=== PATIENT | male | born 1960 | race Caucasian/White ===

== ENCOUNTER → 2016-12-23 | Outpatient (CLI) | payer BC | LOC: RAD 17:40 | DX: R10.9 Unspecified abdominal pain (principal); R31.9 Hematuria, unspecified | CPT/HCPCS: 74000 ==

== ENCOUNTER → 2020-07-09 | Outpatient (CLI) | payer OTHER ==
[~2020-07-09] MED LIST: MOBIC15 MG PO
[2020-07-09 10:54] LABS: HEMOGLOBIN 16.8 gm/dl (14.0-17.5); RED BLOOD COUNT 5.1 M/UL (4.20-5.50); WHITE BLOOD COUNT 5.2 K/UL (4.5-11.0)
[2020-07-09 11:16] LABS: BUN/CREATININE RATIO 12 (0-10)
== END ==
LOC: LAB 10:03
PROVIDERS: Nurse Practitioner Family
DX: Z00.00 Encounter for general adult medical examination without abnormal findings (principal); M51.36 Other intervertebral disc degeneration, lumbar region; E78.00 Pure hypercholesterolemia, unspecified; R10.9 Unspecified abdominal pain; R73.9 Hyperglycemia, unspecified; E78.5 Hyperlipidemia, unspecified; M48.061 Spinal stenosis, lumbar region without neurogenic claudication; J30.9 Allergic rhinitis, unspecified; E53.8 Deficiency of other specified B group vitamins; E55.9 Vitamin D deficiency, unspecified; Z91.89 Other specified personal risk factors, not elsewhere classified
CPT/HCPCS: 36415; 80053; 80061; 80307; 82607; 84439; 84443; 85025; G0480

== ENCOUNTER → 2020-07-25 | Outpatient (CLI) | payer OTHER | LOC: RAD 14:17 | DX: R31.9 Hematuria, unspecified (principal) | CPT/HCPCS: 74018 ==

== ENCOUNTER → 2021-01-13 | Outpatient (CLI) | payer OTHER ==
[2021-01-13 12:03] LABS: HEMOGLOBIN 17.6 gm/dl (14.0-17.5); RED BLOOD COUNT 5.16 M/UL (4.20-5.50); WHITE BLOOD COUNT 5.3 K/UL (4.5-11.0)
[2021-01-13 12:24] LABS: BUN/CREATININE RATIO 11 (0-10)
[2021-01-15 11:13] LABS: PROSTATE SPECIFIC AG, SERUM 0.5 ng/mL (0.0-4.0); PSA, FREE 0.17 ng/mL
== END ==
LOC: LAB 11:26
PROVIDERS: Nurse Practitioner Family
DX: Z00.00 Encounter for general adult medical examination without abnormal findings (principal); N40.1 Benign prostatic hyperplasia with lower urinary tract symptoms; R33.8 Other retention of urine; R31.9 Hematuria, unspecified; M54.12 Radiculopathy, cervical region; M54.6 Pain in thoracic spine; J30.9 Allergic rhinitis, unspecified; E78.5 Hyperlipidemia, unspecified; R10.9 Unspecified abdominal pain; R53.83 Other fatigue; E55.9 Vitamin D deficiency, unspecified; E53.8 Deficiency of other specified B group vitamins
CPT/HCPCS: 80053; 80061; 81001; 82607; 84153; 84154; 84439; 84443; 85025

== ENCOUNTER 2021-05-17 10:27 | Inpatient (IN) | payer SELFPAY ==
[~2021-05-17] VITALS: Ht 188 cm; Wt 104.3 kg
[2021-05-17 11:05] LABS: HEMOGLOBIN 16.6 gm/dl (14.0-17.5); RED BLOOD COUNT 4.95 M/UL (4.20-5.50); WHITE BLOOD COUNT 6.2 K/UL (4.5-11.0)
[2021-05-17 11:37] LABS: BUN/CREATININE RATIO 15 (0-10)
[2021-05-17] MEDS ORDERED: MONTELUKAST SOD10 MG PO (13:45)
[2021-05-17] MEDS ORDERED: KENALOG CREAM 015 GM TOP (13:46)
[2021-05-17] MEDS ORDERED: PROAIR DIGIHAL90 MCG INH (13:47)
[2021-05-17] MEDS ORDERED: AZELASTINE137 MCG/0. (13:48)
[2021-05-17] MEDS ORDERED: CELECOXIB200 MG PO (13:48)
[2021-05-17] MEDS ORDERED: LEVOCETIRIZINE D5 MG PO (13:49)
[2021-05-17] MEDS ORDERED: TRELEGY ELLIPT1 EACH INH (13:49)
[2021-05-17] MEDS ORDERED: TYLENOL EXTRA500 MG PO (13:50)
[2021-05-17] MEDS ORDERED: ASCORBIC ACID500 MG PO (13:50)
[2021-05-17] MEDS ORDERED: DAILY VALUE1 EACH PO (13:50)
[2021-05-17] MEDS ORDERED: ZINC50 M2 PO (13:51)
[2021-05-17] MEDS ORDERED: MUCINEX600 MG PO (13:51)
[2021-05-18 03:36] LABS: HEMOGLOBIN 15.3 gm/dl (14.0-17.5); RED BLOOD COUNT 4.62 M/UL (4.20-5.50)
[2021-05-18 04:06] LABS: BUN/CREATININE RATIO 16 (0-10)
[2021-05-19 08:55] LABS: HEMOGLOBIN 15.8 gm/dl (14.0-17.5); RED BLOOD COUNT 4.8 M/UL (4.20-5.50); WHITE BLOOD COUNT 5.1 K/UL (4.5-11.0)
[2021-05-19 09:22] LABS: BUN/CREATININE RATIO 24 (0-10)
[2021-05-20 03:48] LABS: RED BLOOD COUNT 4.6 M/UL (4.20-5.50); WHITE BLOOD COUNT 6.5 K/UL (4.5-11.0)
[2021-05-20 04:08] LABS: BUN/CREATININE RATIO 22 (0-10)
[2021-05-21 10:04] LABS: HEMOGLOBIN 15.7 gm/dl (14.0-17.5); RED BLOOD COUNT 4.81 M/UL (4.20-5.50); WHITE BLOOD COUNT 7.6 K/UL (4.5-11.0)
[2021-05-21 10:24] LABS: BUN/CREATININE RATIO 22 (0-10)
[2021-05-21] MEDS ORDERED: ELIQUIS 2.5 MG2.5 MG GT (15:27)
[2021-05-21] MEDS ORDERED: PROVENTIL HFA6.7 GM INH (15:27)
[2021-05-21] MEDS ORDERED: PROTONIX 40 MG40 M1 PO (15:27)
[2021-05-21] MEDS ORDERED: BENZONATATE100 MG PO (15:27)
[2021-05-21] MEDS ORDERED: HEMADY20 MG PO (15:27)
== END 2021-05-21 18:19 | disposition home or self-care (01) | DRG 177 ==
LOC: ER1 10:27 → CDU 12:20 → PROG CARE 15:00
PROVIDERS: Nurse Practitioner; Physician Assistant Medical; ADMIT Internal Medicine
PROC: XW033E5 Introduction of Remdesivir Anti-infective into Peripheral Vein, Percutaneous Approach, New Technology Group 5 (ICD-10-PCS; principal; 2021-05-17)
PROC: 3E0333Z Introduction of Anti-inflammatory into Peripheral Vein, Percutaneous Approach (ICD-10-PCS; 2021-05-17)
PROC: 8E0ZXY6 Isolation (ICD-10-PCS; 2021-05-17)
PROC: XW0DXM6 Introduction of Baricitinib into Mouth and Pharynx, External Approach, New Technology Group 6 (ICD-10-PCS; 2021-05-18)
PROC: 5A09357 Assistance with Respiratory Ventilation, Less than 24 Consecutive Hours, Continuous Positive Airway Pressure (ICD-10-PCS; 2021-05-18)
DX: U07.1 COVID-19 (principal); J12.82 Pneumonia due to coronavirus disease 2019; J96.01 Acute respiratory failure with hypoxia; E87.1 Hypo-osmolality and hyponatremia; J45.901 Unspecified asthma with (acute) exacerbation; A08.39 Other viral enteritis; D69.6 Thrombocytopenia, unspecified; J30.9 Allergic rhinitis, unspecified; M79.10 Myalgia, unspecified site; K76.0 Fatty (change of) liver, not elsewhere classified; G47.33 Obstructive sleep apnea (adult) (pediatric); E86.9 Volume depletion, unspecified; Z99.81 Dependence on supplemental oxygen; Z90.49 Acquired absence of other specified parts of digestive tract; Z79.890 Hormone replacement therapy; Z88.8 Allergy status to other drugs, medicaments and biological substances
CPT/HCPCS: 36415; 36600; 71045; 80048; 80053; 80076; 82550; 82553; 82728; 82803; 82962; 83605; 83718; 83735; 83874; 84484; 85025; 85027; 85379; 85610; 85730; 86140; 87040; 93005; 93970; 94640; 94660; 94664; 94760; 96374; 99284; J1100; J1650; J7030; Q9967; U0002

== ENCOUNTER → 2021-06-04 | Outpatient (CLI) | payer OTHER ==
[~2021-06-04] MED LIST changes: +ASCORBIC ACID500 MG PO; +AZELASTINE137 MCG/0.; +BENZONATATE100 MG PO; +CELECOXIB200 MG PO; +DAILY VALUE1 EACH PO; +ELIQUIS 2.5 MG2.5 MG GT; +HEMADY20 MG PO; +KENALOG CREAM 015 GM TOP; +LEVOCETIRIZINE D5 MG PO; +MONTELUKAST SOD10 MG PO; +MUCINEX600 MG PO; +PROAIR DIGIHAL90 MCG INH; +PROTONIX 40 MG40 M1 PO; +PROVENTIL HFA6.7 GM INH; +TRELEGY ELLIPT1 EACH INH; +TYLENOL EXTRA500 MG PO; +ZINC50 M2 PO
== END ==
LOC: EXRD 10:07
DX: R06.02 Shortness of breath (principal)
CPT/HCPCS: 71046

== ENCOUNTER → 2021-06-07 | Outpatient (CLI) | payer SELFPAY ==
[2021-06-07 11:54] LABS: HEMOGLOBIN 15.9 gm/dl (14.0-17.5); RED BLOOD COUNT 4.88 M/UL (4.20-5.50); WHITE BLOOD COUNT 5.3 K/UL (4.5-11.0)
[2021-06-07 14:20] LABS: BUN/CREATININE RATIO 16 (0-10)
[2021-06-08 08:14] LABS: ESTRADIOL 20.6 pg/mL (7.6-42.6); FSH 5.8 mIU/mL (1.5-12.4); LUTEINIZING HORMONE(LH) 5.6 mIU/mL (1.7-8.6); VITAMIN D, 25-HYDROXY 57.4 ng/mL (30.0-100.0)
[2021-06-08 11:14] LABS: CREATININE, URINE 139.6 mg/dL (Not Estab.)
[2021-06-08 13:14] LABS: ANTISTREPTOLYSIN O AB 39.4 IU/mL (0.0-200.0); RHEUMATOID ARTHRITIS FACTOR <10.0 IU/mL (<14.0)
[2021-06-09 17:08] LABS: TESTOSTERONE, SERUM 340 ng/dL (264-916)
== END ==
LOC: LAB 10:52
PROVIDERS: Nurse Practitioner Family
DX: M25.50 Pain in unspecified joint (principal)
CPT/HCPCS: 36415; 80053; 80061; 82043; 82570; 82607; 82670; 83001; 83002; 83036; 83735; 84146; 84402; 84403; 84439; 84443; 84550; 84630; 85025; 85652; 86038; 86060; 86140; 86141; 86431

== ENCOUNTER 2021-06-25 11:46 | Emergency (ER) | payer MEDICAID, OTHER ==
[2021-06-25 14:48] LABS: HEMOGLOBIN 14.3 gm/dl (14.0-17.5); RED BLOOD COUNT 4.61 M/UL (4.20-5.50); WHITE BLOOD COUNT 9.3 K/UL (4.5-11.0)
[2021-06-25 15:14] LABS: BUN/CREATININE RATIO 11 (0-10)
== END 2021-06-25 20:27 | disposition home or self-care (01) ==
LOC: ER1 11:46
PROVIDERS: Physician Assistant
DX: R05.3 Chronic cough (principal); R91.8 Other nonspecific abnormal finding of lung field; Z86.19 Personal history of other infectious and parasitic diseases; J45.909 Unspecified asthma, uncomplicated; Z88.8 Allergy status to other drugs, medicaments and biological substances
CPT/HCPCS: 71045; 80048; 82550; 82553; 83874; 84484; 85025; 93005; 99284; U0002

== ENCOUNTER → 2021-07-10 | Outpatient (CLI) | payer OTHER ==
[2021-07-10 11:35] LABS: HEMOGLOBIN 15.8 gm/dl (14.0-17.5); RED BLOOD COUNT 4.99 M/UL (4.20-5.50); WHITE BLOOD COUNT 5.9 K/UL (4.5-11.0)
[2021-07-11 08:12] LABS: THYROID PEROXIDASE (TPO) AB 15 IU/mL (0-34)
[2021-07-11 14:13] LABS: THYROGLOBULIN ANTIBODY <1.0 IU/mL (0.0-0.9)
== END ==
LOC: LAB 11:06
PROVIDERS: Nurse Practitioner Family
DX: R53.83 Other fatigue (principal); M25.50 Pain in unspecified joint
CPT/HCPCS: 36415; 84439; 84443; 85025; 86376; 86800

== ENCOUNTER → 2021-08-06 | Outpatient (CLI) | payer MEDICAID ==
[2021-08-06 14:45] LABS: HEMOGLOBIN 16.3 gm/dl (14.0-17.5); RED BLOOD COUNT 5.24 M/UL (4.20-5.50); WHITE BLOOD COUNT 6.2 K/UL (4.5-11.0)
[2021-08-06 15:05] LABS: BUN/CREATININE RATIO 8 (0-10)
[2021-08-07 08:13] LABS: VITAMIN D, 25-HYDROXY 53.7 ng/mL (30.0-100.0)
[2021-08-07 11:13] LABS: ANTISTREPTOLYSIN O AB 41.4 IU/mL (0.0-200.0); RHEUMATOID ARTHRITIS FACTOR <10.0 IU/mL (<14.0)
== END ==
LOC: LAB 12:45
PROVIDERS: Nurse Practitioner Family
DX: M25.50 Pain in unspecified joint (principal); M54.9 Dorsalgia, unspecified; G89.29 Other chronic pain; U07.1 COVID-19; J01.00 Acute maxillary sinusitis, unspecified; J30.9 Allergic rhinitis, unspecified; E78.5 Hyperlipidemia, unspecified; R10.9 Unspecified abdominal pain; E55.9 Vitamin D deficiency, unspecified; E53.8 Deficiency of other specified B group vitamins; R53.83 Other fatigue; Z00.00 Encounter for general adult medical examination without abnormal findings
CPT/HCPCS: 36415; 80053; 80061; 82607; 84439; 84443; 84550; 85025; 85652; 86038; 86060; 86140; 86141; 86431; 86769

== ENCOUNTER → 2021-09-24 | Outpatient (CLI) | payer OTHER | LOC: HEART 5 15:40 | DX: J45.909 Unspecified asthma, uncomplicated (principal) | CPT/HCPCS: 71046; 94010; 95012 ==

== ENCOUNTER → 2021-12-25 | Outpatient (CLI) | payer OTHER | LOC: CT 14:46 | DX: J32.0 Chronic maxillary sinusitis (principal); R51.9 Headache, unspecified | CPT/HCPCS: 70486 ==

== ENCOUNTER → 2022-02-14 | Outpatient (CLI) | payer OTHER ==
[2022-02-14 14:36] LABS: HEMOGLOBIN 16.9 gm/dl (14.0-17.5); RED BLOOD COUNT 5.11 M/UL (4.20-5.50); WHITE BLOOD COUNT 5.2 K/UL (4.5-11.0)
[2022-02-14 15:11] LABS: BUN/CREATININE RATIO 11 (0-10)
[2022-02-15 10:15] LABS: CREATININE, URINE 67.3 mg/dL (Not Estab.); MICROALB/CREAT RATIO <4 (0-29)
== END ==
LOC: LAB 13:53
PROVIDERS: Nurse Practitioner Family
DX: Z13.1 Encounter for screening for diabetes mellitus (principal); Z00.00 Encounter for general adult medical examination without abnormal findings; E78.5 Hyperlipidemia, unspecified; N40.1 Benign prostatic hyperplasia with lower urinary tract symptoms; E55.9 Vitamin D deficiency, unspecified; E53.8 Deficiency of other specified B group vitamins
CPT/HCPCS: 36415; 80053; 80061; 82043; 82570; 82607; 83036; 84153; 84439; 84443; 85025